=== PATIENT | male | born 1965 | race Caucasian/White ===

== ENCOUNTER 2021-07-07 09:36 | Day surgery (SDC) | payer OTHER, SELFPAY ==
[~2021-07-07] VITALS: Ht 170.2 cm; Wt 89.4 kg
[2021-07-07] MEDS ORDERED: fentaNYL citrate 0.05 MG/ML VIAL ONE (12:24)
[2021-07-07] MEDS ORDERED: LIDOCAINE 2% 100 MG/5 ML UJET TP ONE (12:25)
[2021-07-07] MEDS ORDERED: fentaNYL citrate 0.05 MG/ML VIAL IVP ONE (16:05)
== END 2021-07-07 13:21 | disposition home or self-care (01) ==
LOC: MDS 09:36 → MMU 10:17 → MDS 13:21
PROVIDERS: ATTEND Internal Medicine Gastroenterology
DX: Z12.11 Encounter for screening for malignant neoplasm of colon (principal); K57.30 Diverticulosis of large intestine without perforation or abscess without bleeding; I10 Essential (primary) hypertension; Z79.899 Other long term (current) drug therapy; Z20.822 Contact with and (suspected) exposure to COVID-19
CPT/HCPCS: 45378; 87426; J3010